=== PATIENT | female | born 1975 | race American Indian/Alaskan Native ===

== ENCOUNTER 2016-09-16 09:19 | Day surgery (SDC) | payer OTHER ==
[2016-09-16] MEDS ORDERED: DIPRIVAN 10 MG/ML IV ONE ×2 (09:34→11:58)
[2016-09-16] MEDS ORDERED: DILAUDID ONE ×3 (09:34→12:05)
[2016-09-16] MEDS ORDERED: XYLOCAINE MPF 2% ONE ×2 (09:34→10:29)
[2016-09-16] MEDS ORDERED: ZOFRAN ONE ×2 (09:36→11:09)
[2016-09-16] MEDS ORDERED: DECADRON ONE ×2 (09:36→11:09)
--- NOTE | 2016-09-16 10:12 | Anesthesia Consultation ---
Anesthesia Consult and Med Hx Date of service: 09/16/16 - Airway Anesthetic Teeth Evaluation: Good ROM Head & Neck: Adequate Mental/Hyoid Distance: Adequate Mallampati Class: Class II Intubation Access Assessment: Probably Good - Pulmonary Exam CTA: Yes - Cardiac Exam Cardiac Exam: RRR - Pre-Operative Health Status ASA Pre-Surgery Classification: ASA3 Proposed Anesthetic Plan: General, MAC - Pulmonary Hx Smoking: Yes (CIGARETTES 5 CIGS PD X 4 YRS, QUIT 06/2015) Hx Asthma: Yes (very rare MDI usage) Hx Sleep Apnea: No - Cardiovascular System Hx Hypertension: Yes (FOR 3 YRS) - Central Nervous System Hx Psychiatric Problems: No - Other Systems Hx Cancer: No
--- NOTE | 2016-09-16 10:12 | Anesthesia Day of Surgery ---
Anesthesia Day of Surgery - Day of Surgery Patient Examined: Yes Patient H&P Reviewed: Yes Patient is NPO: Yes
[2016-09-16] MEDS ORDERED: NORCO 5/325 PO PRN (10:13)
[2016-09-16] MEDS ORDERED: DILAUDID IV PRN (10:13)
[2016-09-16] MEDS ORDERED: ZOFRAN IV PRN (10:13)
[2016-09-16] MEDS ORDERED: XYLOCAINE 1%/ EPI 1:100,000 INFILTRATI ONE ×3 (10:25→11:19)
[2016-09-16] MEDS ORDERED: MARCAINE 0.5% 30 ML INFILTRATI ONE (10:25)
[2016-09-16 10:58] LABS: Hematocrit 34.7 % (30.3-42.9); Hemoglobin 11.2 gm/dl (10.1-14.3); Mean Corpuscular HGB Conc 33 % (30-34); Mean Corpuscular Hemoglobin 29 pg (28-32); Mean Corpuscular Volume 88 fl (79-97); Platelet Count 112 K/mm3 (140-440); Red Blood Count 3.92 M/mm3 (3.65-5.03); Red Cell Distribution Width 16.9 % (13.2-15.2); White Blood Count 2.6 K/mm3 (4.5-11.0)
[2016-09-16] MEDS ORDERED: PEPCID IV NR (11:00)
[2016-09-16] MEDS ORDERED: ANCEF/STERILE WATER 2 GM/20 ML IV NR (11:00)
[2016-09-16] MEDS ORDERED: LACTATED RINGERS 1,000 ML IV SCH (11:00)
[2016-09-16] MEDS ORDERED: VERSED IV NR (11:00)
[2016-09-16] MEDS ORDERED: MARCAINE 0.5% INFILTRATI ONE ×2 (11:19)
[2016-09-16] MEDS ORDERED: NACL 0.9% IR ONE (11:19)
[2016-09-16] MEDS ORDERED: LACTATED RINGERS 1,000 ML ONE (12:10)
[2016-09-16] MEDS ORDERED: PROAIR IH ONE (12:12)
--- NOTE | 2016-09-16 13:12 | Operative Report ---
PREOPERATIVE DIAGNOSIS: Large mass, right flank. POSTOPERATIVE DIAGNOSIS: Large mass, right flank. Large lipoma. NAME OF PROCEDURE: Removal of a large mass, right flank. It measured about 15 x 15 x 10 cm. It is a multilobulated lipoma. ANESTHESIA: General. BLOOD LOSS: Minimal. FINDINGS: As above. DESCRIPTION OF PROCEDURE: With the patient in the left decubitus position, prepped and draped in usual fashion. I made a spindle-shaped incision along the tip of the mass deep subcutaneous tissue. I was able to remove the mass slowly using electrocautery, making sure to have good hemostasis. All was well satisfied. Then, all the bleeders were controlled with the use of electrocautery. The wound was then closed in 2 layers using 3-0 Vicryl for the subcutaneous tissue and 4-0 for the intracuticular layer and skin and Steri-Strips and the bandage. The patient was then transferred to the recovery room in good condition. JOB# [id number] KOBE/MADONNA
[2016-09-16 13:41] VITALS: BP 142/90
--- NOTE | 2016-09-16 18:35 | Post Anesthesia Evaluation ---
- Post Anesthesia Evaluation Patient Participated: Yes Airway Patent: Yes Stable Respiratory Function: Yes Nausea/Vomiting: No Temp > 96.8F: Yes Pain Manageable: Yes Adequeate Hydration: Yes Anesthesia Complications: No
--- NOTE | 2016-09-16 21:04 | Discharge Summary ---
FINAL DIAGNOSIS: Multilobulated large lipoma, right flank. HOSPITAL COURSE: This patient came to my office yesterday because of the above. She had this for about 10 years. She would have some pain in particular when she lies on her right side down. So, she was brought to the operating room today, under general anesthesia, she underwent removal of the lump. It was a fairly good-sized, multilobulated lipoma, about 15 x 15 x 10 cm. After finishing, she was transferred to the recovery room in good condition to be seen in my office in about 10 days, to call me if she has any problem otherwise. She was given Vicodin 1 q.6h. p.r.n. for pain. JOB# [id number] KOBE/MADONNA
== END 2016-09-16 14:26 | disposition home or self-care (01) ==
LOC: OR 09:19
PROVIDERS: ATTEND Surgery
DX: D17.1 Benign lipomatous neoplasm of skin and subcutaneous tissue of trunk (principal); M79.89 Other specified soft tissue disorders; J45.909 Unspecified asthma, uncomplicated; I10 Essential (primary) hypertension; Z87.891 Personal history of nicotine dependence
CPT/HCPCS: 21931; 36415; 81025; 85027; 88307; J0690; J1100; J1170; J2250; J2405; J2704; J7120; 88305

== ENCOUNTER 2016-10-20 11:12 | Day surgery (SDC) | payer OTHER ==
[~2016-10-20 11:12] MED LIST: MARCAINE 0.5% 30 ML INFILTRATI ONE
[2016-10-20 11:43] VITALS: BP 140/80
[2016-10-20] MEDS ORDERED: NACL 0.9% IR ONE (12:19)
[2016-10-20] MEDS ORDERED: MARCAINE 0.5% INFILTRATI ONE (12:19)
--- NOTE | 2016-10-20 18:56 | History and Physical Report ---
This patient had a large lipoma on the right flank. This was removed about 3 weeks ago. She came today because she developed a hematoma that required evacuation. At this time, she came to close the wound with one stitch only. It is about 3 cm now after being taken care for by our wound care nurses at home. So this was done under local anesthesia and then she was discharged home to call me in about 2 days and to see me in the office in about 10 days and we will go from there. JOB# [id number] KOBE/MADONNA
--- NOTE | 2016-10-20 20:43 | Operative Report ---
PREOPERATIVE DIAGNOSIS: Status post removal of large lipoma, right flank. POSTOPERATIVE DIAGNOSES: Status post removal of a large lipoma, right flank, a large hematoma in the area postop. SURGERY: Exploration of wound, irrigation and closure. FINDINGS: The patient had a wound that is about 8 to 10 cm long in the right flank. This was created after removing the lipoma from that area about 3 weeks ago. Apparently, she developed a bleeding in the area that required reopening of the wound and washing the hematoma out. At the present time, she has been seen by the wound care nurse at her home and now it is time for us to close the wound. This was done today at the minor procedure room in the hospital under local anesthesia. So under local anesthesia and after prepping and draping in usual fashion, the area around the wound that is now about 3 cm was infiltrated with 1% Xylocaine and then one stitch of 0 Vicryl was applied [id number] fashion, by this the 2 edges were approximated together and I put a very small packing on both sides. A bandage was applied. The patient was then advised to go home, to call me on Wednesday to tell me how she is doing. She may wash the area with Hibiclens soap, she was given that to be taken home with her and to call me if she has any fever otherwise see me in about 10 to 15 days to remove the stitches. JOB# [id number] KOBE/MADONNA
== END 2016-10-20 12:40 | disposition home or self-care (01) ==
LOC: OR 11:12
PROVIDERS: ATTEND Surgery
DX: L76.32 Postprocedural hematoma of skin and subcutaneous tissue following other procedure (principal)